=== PATIENT | male | born 1995 | race Caucasian/White ===

== ENCOUNTER 2022-06-03 13:44 | Emergency (ER) | payer MEDICARE, MEDICAID, SELFPAY ==
[2022-06-03 13:52] VITALS: BP 152/107; PULSE 121; RESP 18; TEMP 36.5; O2SAT 98
--- NOTE | 2022-06-03 14:41 | ED.GENADUL_ITS ---
Discharge Plan Disposition Patient Disposition: Home Condition: Stable Discharge Details Clinical Impression: Cellulitis, umbilical Primary Care Provider: Agatha,Local ED Provider: Erendira Cifuentes Home Meds and New Rx's Prescriptions: New cephalexin 500 mg tablet 500 mg PO BID 10 Days Qty: 20 0RF Discharge Instructions Instructions: Cellulitis (ED) Additional Instructions: Please clean your bellybutton out as discussed with a clean washcloth and soap. trim nails and wash hands prior to cleaning. You may also use a Q-tip soaked in some alcohol or soap to clean the inside. Take the antibiotics as directed. Please return if the redness extends past the marked line after 3 days of the antibiotic. Or if you are feeling sicker at any time. Follow up with primary care provider in 3-5 days. Return to ED sooner if any worsening or concerns. Increase oral fluids. Please take Tylenol or Ibuprofen with food every 4-6 hours as needed for pain and swelling. You are placed on a care management list to assist with PCP establishment and follow-up. Referrals: [facility] [Provider Group] Discharge Data Discharge Date/Time-TO BE ENTERED AT DEPARTURE: 06/03/22 15:40 Medical Decision Making 27-year-old male presents to the ER with a chief complaint of bellybutton i nfection and drainage which he noticed few days ago. He reports that he was messing around and there and something popped and began draining. He does have a small intraumbilical abscess, surrounding erythema which measures approximately 8 cm x 10 cm. He denies any nausea vomiting diarrhea no problems urinating. Denies any fever or chills. Area was explored with Q-tip and alcohol swab, wound does not extend into the abdominal wall. Abdomen is soft, nontender all 4 quadrants. We will plan to give IM Rocephin and place patient on p.o. cephalexin. I did discuss strict return instructions and home care with him I did instruct him to clean out his bellybutton with clean hands, soapy clean washcloth and allowed to dry daily. Erythema marked by nursing staff development coordinator. Did discuss home care with patient to return sooner if any extension of erythema or feeling sicker at any time. This text was generated using [employer] system, please disregard any oddities of phrase or misspellings. Sign Out No HPI General Mode of arrival: ambulatory . Date/Time Provider Initiated Documentation: 06/03/22 14:16 . Limitations to Documentation: no limitations . Information obtained by: patient, RN notes reviewed and old records reviewed . HPI Narrative: 27-year-old male presents to the ER with a chief complaint of bellybutton infection and drainage which he noticed few days ago. He reports that he was messing around and there and something popped and began draining. He does have a small intraumbilical abscess, surrounding erythema which measures approximately 8 cm x 10 cm. He denies any nausea vomiting diarrhea no problems urinating. Denies any fever or chills. Initially when he presented to the ER his heart rate was 121, on reevaluation heart rate is down to 85. Related Data Home Medications Medication Instructions Recorded Confirmed cephalexin 500 mg tablet 500 mg PO BID 10 days #20 tabs 06/03/22 Previous Rx's Medication Instructions Recorded cephalexin 500 mg tablet 500 mg PO BID 10 days #20 tabs 06/03/22 Allergies Allergy/AdvReac Type Severity Reaction Status Date / Time mold AdvReac Mild Unverified 06/03/22 14:01 pollen extracts AdvReac Mild Unverified 06/03/22 14:01 General Stated Complaint: GenMedical SURJIT: 3 PFSH All Active Problems (Updated 06/03/22 @ 15:37 by Erendira Cifuentes NP) Cellulitis, umbilical (Acute) Social History Smoking/Tobacco Use Status: Never Smoking risk assessment performed?: Yes Alcohol Intake: current Alcohol Intake frequency: holidays/special occasions o nly Drug use: Never Substance use type: does not use Do you feel safe at home: Yes Do you feel safe in your relationship?: Yes Exam Narrative Exam Narrative: Constitutional: Alert and oriented x3. Appears stated age. Normal body habitus. Head: Normocephalic, no trauma. Eyes: Pupils PERRL, Red reflex noted, EOM's intact. Eyelids symmetrical without lesions, discharge, or swelling. Chest: RRR, Normal S1, S2, distal pulses intact. Resp: Lungs clear to auscultation bilaterally, no wheezes, rales, or rhonchi. Abdomen: Soft, non-distended, Normoactive bowel sounds all 4 quads. Musculoskeletal: Normal gait, 5/5 strength to all four extremities. Skin: See below. Capillary refill less than 2 sec. GI Inspection: obesity and other (Abdominal wall erythema, surrounding the umbilicus extends to the pannis) Palpation: soft, no hepatosplenomegaly and no guarding Abdomen image: 1. Erythema, central umbilicus tenderness, bloody purulent drainage, this was explored with a Q-tip and cleaned extensively with alcohol swab and chlorhex idine. A small intraumbilical abscess which is draining noted. Course Vital Signs Vital signs: Vital Signs Temperature 36.5 C 06/03/22 13:52 Pulse 121 H 06/03/22 13:52 Respiratory Rate 18 06/03/22 13:52 Blood Pressure 152/107 H 06/03/22 13:52 Pulse Oximetry 98 06/03/22 13:52 Temperature 36.5 C 06/03/22 13:52 Temperature Source Temporal Artery Scan 06/03/22 13:52 Pulse 121 H 06/03/22 13:52 Respiratory Rate 18 06/03/22 13:52 Respiratory Effort Non-Labored 06/03/22 13:55 Blood Pressure 152/107 H 06/03/22 13:52 Blood Pressure Position Sitting 06/03/22 13:52 Pulse Oximetry 98 06/03/22 13:52 Oxygen Delivery Method Room Air 06/03/22 13:52 Oxygen Flow Rate 0 06/03/22 13:52 PAWSS Have you Been Recently Intoxicated or Drunk Within the Last 30 days?: No Have you Ever Experienced Previous Episodes of Alcohol Withdrawal?: No Have you ever Experienced Withdrawal Seizures?: No Have you ever Experienced Delirium Tremens(DT)s?: No Have you ever undergone Alcohol Rehabilitation Treatment (i.e, inpt ot outpatient treatment programs)?: No Have you ever Experienced Blackouts?: No Have you ever Combined Alcohol with other Downers within the last 90 days?: No Have you ever Combined Alcohol with any other Substance of Abuse during the last 90 days?: No Positive Blood Alcohol level on Presentation? [PCS.BAL]: No Evidence of Increased Autonomic Activity (i.e. HR>120, tremor, sweating, agitation, nausea)?: No Result: 0
--- NOTE | 2022-06-03 14:50 | NUR.NOTE ---
Nursing Note: Referral given to Care Management for needs PCP; abd wall cellulitis needs re-evaluation within 1 week.
[2022-06-03] MEDS: cefTRIAXone 500 MG VIAL IM (14:57)
[2022-06-03] MEDS: Cephalexin 500 MG CAP, 2 CAPS/BTL PO (15:02)
[2022-06-03 15:03] VITALS: PULSE 91; O2SAT 97
[2022-06-03] MEDS: Cephalexin 500 MG CAP PO (15:03)
--- NOTE | 2022-06-06 12:54 | PDOC.ERCMACT ---
- If Service Date Differs Date of service: 06/06/22 Time of Service: 12:54 Care Management Activity Note Darnell is seen in the ED for cellulitis. At the request of ED provider, MARGA coordinates a referral to YUAN Wang, of [facility], t-doc, to assist Darnell in obtaining a follow up appointment in one week and in establishing care with a PCP. He has Medicaid for insurance.
== END 2022-06-03 15:40 | disposition home or self-care (01) ==
PROVIDERS: Emergency Provider Registered Nurse Emergency
DX: L03.316 Cellulitis of umbilicus (principal)
CPT/HCPCS: 96372; 99284; 99283; J0696

== ENCOUNTER 2024-11-23 09:57 | Emergency (ER) | payer MEDICARE, MEDICAID, SELFPAY ==
[2024-11-23 10:05] VITALS: BP 149/99; PULSE 61; RESP 16; TEMP 36.6; O2SAT 97
--- NOTE | 2024-11-23 10:33 | W.ED.GENAD ---
Discharge Plan Disposition Patient Disposition: Home Condition: Stable Discharge Details Clinical Impression: Chronic dental infection Primary Care Provider: Unknown,Unknown ED Provider: Randy Smith Home Meds and New Rx's Prescriptions: New penicillin V potassium 500 mg tablet 500 mg PO QID 7 Days Qty: 28 0RF No Action sodium fluoride-pot nitrate 1.1-5 % paste 1 applic PO BID Discharge Instructions Additional Instructions: Take antibiotics as prescribed. Please keep your dental follow-up appointments. Rinse your mouth after eating. Return with significant facial swelling voice change or difficulty swallowing. HPI General Date/Time Provider Initiated Documentation: 11/23/24 10:13. Limitations to Documentation: no limitations. Information obtained by: patient. HPI Narrative: 9-year-old gentleman without significant past medical history presents for evaluation of dental pain. The patient reports chronic dental caries with close follow-up and management by local dentist. He reports that he did miss his last appointment. He states that over the last few days his symptoms have worsened.. He localizes his pain to the right lower teeth. He has multiple cavities there and has had fillings. He denies any facial swelling, drainage or fever. He denies difficulty swallowing. Related Data Home Medications ?Medication ?Instructions ?Recorded ?Confirmed penicillin V potassium 500 mg 500 mg PO QID 7 days #28 tabs 11/23/24 tablet sodium fluoride 1.1 %-potassium 1 applic PO BID 11/23/24 11/23/24 nitrate 5 % dental paste Previous Rx's ?Medication ?Instructions ?Recorded penicillin V potassium 500 mg 500 mg PO QID 7 days #28 tabs 11/23/24 tablet Allergies Allergy/AdvReac Type Severity Reaction Status Date / Time mold AdvReac Mild Unknown Unverified 11/23/24 10:09 pollen extracts AdvReac Mild Unknown Unverified 11/23/24 10:09 General Stated Complaint: DentalOral SURJIT: 4 Exam Narrative Exam Narrative: Review of Systems: All systems reviewed & are unremarkable except as noted in HPI and below Well-developed, no acute distress Afebrile NCAT Multiple dental caries noted particularly on the right mandibular teeth there are broken teeth as well as caries, mild gingival irritation and redness without obvious abscess, floor of mouth is soft, normal voice no stridor PERRL, normal conjunctiva RRR Unlabored respiratory effort Course Vital Signs Vital signs: Vital Signs Temperature 36.6 C 11/23/24 10:05 Pulse 61 11/23/24 10:05 Respiratory Rate 16 11/23/24 10:05 Blood Pressure 149/99 H 11/23/24 10:05 Pulse Oximetry 97 11/23/24 10:05 Temperature 36.6 C 11/23/24 10:05 Temperature Source Oral 11/23/24 10:05 Pulse 61 11/23/24 10:05 Respiratory Rate 16 11/23/24 10:05 Blood Pressure 149/99 H 11/23/24 10:05 Blood Pressure Position Sitting 11/23/24 10:05 Pulse Oximetry 97 11/23/24 10:05 Oxygen Delivery Method Room Air 11/23/24 10:05 Oxygen Flow Rate 0 11/23/24 10:05 Pain Level 8 11/23/24 10:05 Medical Decision Making Emergent evaluation of dental pain. Initial differential clued's dental Luis's, odontogenic abscess, no evidence of deep space infection on examination. No obvious abscess that is drainable on exam today. Will start on antibiotics as there is likely some worsened local infection. Patient does have dental follow-up and will keep his appointment. Return precautions advised. Quality:[facility] Health Related Social Needs: No Data to Display PFSH All Active Problems (Updated 11/23/24 @ 10:19 by Randy Smith MD) Chronic dental infection (Acute) Social History Smoking/Tobacco Use Status: Never Smoking risk assessment performed?: Yes Alcohol Intake: current Alcohol Intake frequency: holidays/special occasions only Drug use: Never Substance use type: does not use Do you feel safe at home: Yes Do you feel safe in your relationship?: Yes
--- NOTE | 2024-11-29 10:52 | NUR.NOTE ---
Access chart to reconcile EKG orders with EKG's in [facility]. Order cancelled, none in [facility] and none documented in provider note. Nursing Note:
== END 2024-11-23 10:24 | disposition home or self-care (01) ==
LOC: ER 10:22
PROVIDERS: Emergency Provider Emergency Medicine
DX: K04.7 Periapical abscess without sinus (principal)
CPT/HCPCS: 99283